=== PATIENT | female | born 1985 | race Caucasian/White ===

== ENCOUNTER 2018-07-25 09:23 | Emergency (ER) | payer OTHER ==
[~2018-07-25] VITALS: Ht 162.6 cm; Wt 81.7 kg
[2018-07-25 09:23] VITALS: BP 118/81
[2018-07-25] MEDS ORDERED: MEDROLDOSEPACK PO (10:08)
[2018-07-25] MEDS ORDERED: CYCLOBENZAPRINE5 MG PO (10:08)
[2018-07-25] MEDS ORDERED: NORCO 10-325 T1 EACH PO (10:08)
== END 2018-07-25 18:47 | disposition home or self-care (01) ==
LOC: EDBD 09:23 → ER 09:23
DX: M54.5 Low back pain (principal); E03.9 Hypothyroidism, unspecified